=== PATIENT | female | born 1970 | race Caucasian/White ===

== ENCOUNTER 2021-10-24 19:37 | Emergency (ER) | payer OTHER, SELFPAY ==
--- NOTE | 2021-10-24 | ECG_ITS ---
Test Reason : TACHYCARDIA Blood Pressure : / mmHG Vent. Rate : 146 BPM Atrial Rate : 146 BPM P-R Int : 136 ms QRS Dur : 082 ms QT Int : 258 ms P-R-T Axes : 042 -36 033 degrees QTc Int : 402 ms Sinus tachycardia Left axis deviation Abnormal ECG When compared with ECG of 11-MAY-2018 15:44, No significant change was found Referred By: Generic ED Physician Electronically Signed By:HUE TORIBIO
--- NOTE | ~2021-10-24 | XR_ITS ---
EXAMINATION: XR CHEST CLINICAL INFORMATION: Cough. COMPARISON: Chest radiograph dated from 05/11/2018. TECHNIQUE: PA view of the chest was obtained. FINDINGS: Normal appearance of the cardiomediastinal silhouette. No focal airspace opacities, pleural effusions or pneumothorax. No acute osseous abnormalities. The visualized upper abdomen is within normal limits. XR/XR chest 1V IMPRESSION: No acute cardiopulmonary findings.
[2021-10-24 20:14] VITALS: BP 141/78; PULSE 156; RESP 20; TEMP 36.4; O2SAT 94; BMI 48.6
[2021-10-24 20:35] LABS: MANUAL DIFF FLAG NO
[2021-10-24 20:37] LABS: Basophils Percent Auto 0.3 % (0-2); Eosinophils Percent Auto 0.6 % (0-4); Hematocrit 42.7 % (37.0-47.0); Hemoglobin 14.4 g/dl (12.0-16.0); Imm Gran Abs Auto 0.02 X10*3/uL (0.00-0.03); Imm Gran Pct Auto 0.3 % (0.0-0.4); Lymphocytes Absolute Auto 0.7 X10*3/uL (1.2-4.9); Mean Corpuscular HGB Conc 33.7 g/dl (31.0-35.0); Mean Corpuscular Hemoglobin 31.2 pg (27.0-33.0); Mean Corpuscular Volume 92.6 fL (80.0-98.0); Mean Platelet Volume 9.4 fL (9.4-12.3); Monocytes Absolute Auto 0.6 X10*3/uL (0.1-1.2); Monocytes Percent Auto 8.4 % (2-11); Neutrophils Absolute Auto 5.5 x10*3/uL (2.0-8.3); Neutrophils Percent Auto 80.4 % (45-73); Platelet Count 165 X10*3/uL (160-400); Red Blood Count 4.61 X10*6/uL (4.20-5.50); Red Cell Distribution Width 12.6 % (11.0-16.0); White Blood Count 6.9 X10*3/uL (4.8-10.8)
[2021-10-24 20:50] LABS: COVID-19 Test Positive (Negative)
[2021-10-24 21:02] LABS: Anion Gap 13 (12-20); Blood Urea Nitrogen 11 mg/dL (9-16); Calcium 9.4 mg/dL (8.4-10.2); Carbon Dioxide 20 mmol/L (22-29); Chloride 106 mmol/L (96-108); Creatinine Clr Calc Pharmacy 105.1; Estimated Glomerular Filt Rate > 60; Glucose Random 134 mg/dL (60-115); Potassium 4.2 mmol/L (3.3-5.1); Sodium 135 mmol/L (135-145)
[2021-10-24 21:08] LABS: Troponin-I High Sensitivity < 3.5 ng/L (<3.5-17.0)
--- NOTE | 2021-10-24 22:05 | ED_ITS ---
HPI - General Adult General Chief complaint: General Medical Stated complaint: Covid+ fever body aches Time Seen by Provider: 10/24/21 22:05 Source: patient Mode of arrival: ambulatory History of Present Illness HPI narrative: Patient will been vaccinated against COVID has not received a booster dose yet tested positive for COVID today patient complaining of low-grade fever occasional cough otherwise feels okay no shortness of breath Related Data Allergies Allergy/AdvReac Type Severity Reaction Status Date / Time morphine [MORPHINE] Allergy Intermediate RASH Verified 10/24/21 20:13 Penicillins Allergy Mild RASH Verified 10/24/21 20:13 From BENADRYL Allergy Mild CONFUSION Uncoded 10/24/21 20:13 Review of Systems Review of Systems: Yes all other systems are reviewed and are negative [facility] Past Medical History Attestation statement: The following information was validated with the patient. Social History Social History Advance Directives: No Advance Directives Information Provided: No Physical Exam Vital Signs: Vital Signs: Last Vital Signs Temp 99.4 F 10/24/21 22:18 Pulse 160 H 10/24/21 22:18 Resp 20 10/24/21 22:18 BP 110/79 10/24/21 22:18 Pulse Ox 93 10/24/21 22:18 BMI result Body Mass Index 48.6 Appearance: Alert. Oriented X3. No acute distress. ENT: Pharynx normal. Oral Mucosa moist Neck: Normal inspection. Neck supple. CVS: sinus tachycardia Pulses normal. Respiratory: No respiratory distress. Equal air entry bilateral, no wheezing/rales/rhonchi Abdomen: Soft and nontender. Bowel sounds are present, Skin: Skin warm and dry. Normal skin color. Normal skin turgor. Extremities: No lower extremity edema. No calf tenderness Neuro: Oriented X 3. Medical Decision Making MDM Narrative Medical decision making narrative: Patient's chest x-ray negative for infiltrate was tachycardic when she arrived asymptomatic advised to follow with PCP for tachycardia Lab Data Result diagrams: 10/24/21 20:31 10/24/21 20:31 Labs: Lab Results 10/24/21 10/24/21 10/24/21 Range/Units 20:31 20:31 20:31 WBC 6.9 (4.8-10.8) X10*3/uL RBC 4.61 (4.20-5.50) X10*6/uL Hgb 14.4 (12.0-16.0) g/dl Hct 42.7 (37.0-47.0) % MCV 92.6 (80.0-98.0) fL MCH 31.2 (27.0-33.0) pg MCHC 33.7 (31.0-35.0) g/dl RDW 12.6 (11.0-16.0) % Plt Count 165 (160-400) X10*3/uL MPV 9.4 (9.4-12.3) fL Immature Gran % (Auto) 0.3 (0.0-0.4) % Neut % (Auto) 80.4 H (45-73) % Lymph % (Auto) 10.0 L (20-40) % Josephine % (Auto) 8.4 (2-11) % Eos % (Auto) 0.6 (0-4) % Baso % (Auto) 0.3 (0-2) % Lymph # (Auto) 0.7 L (1.2-4.9) X10*3/uL Josephine # (Auto) 0.6 (0.1-1.2) X10*3/uL Eos # (Auto) 0.0 (0.0-0.4) X10*3/uL Baso # (Auto) 0.0 (0.0-0.2) X10*3/uL Abs Immat Gran (auto) 0.02 (0.00-0.03) X10*3/uL Absolute Neuts (auto) 5.5 (2.0-8.3) x10*3/uL Absolute Nucleated RBC 0.000 (0.0-0.012) X10*3/uL Nucleated RBC % (auto) 0.0 (0.0-0.2) /100WBC Sodium 135 (135-145) mmol/L Potassium 4.2 (3.3-5.1) mmol/L Chloride 106 (96-108) mmol/L Carbon Dioxide 20 L (22-29) mmol/L Anion Gap 13 (12-20) BUN 11 (9-16) mg/dL Creatinine 0.84 (0.5-1.4) mg/dL Estim Creat Clear Calc 105.1 Estimated GFR > 60 Random Glucose 134 H (60-115) mg/dL Calcium 9.4 (8.4-10.2) mg/dL Troponin I High Sens < 3.5 (<3.5-17.0) ng/L COVID-19 (JEROMY) (Negative) COVID-19 Clin Com 10/24/21 Range/Units 20:31 WBC (4.8-10.8) X10*3/uL RBC (4.20-5.50) X10*6/uL Hgb (12.0-16.0) g/dl Hct (37.0-47.0) % MCV (80.0-98.0) fL MCH (27.0-33.0) pg MCHC (31.0-35.0) g/dl RDW (11.0-16.0) % Plt Count (160-400) X10*3/uL MPV (9.4-12.3) fL Immature Gran % (Auto) (0.0-0.4) % Neut % (Auto) (45-73) % Lymph % (Auto) (20-40) % Josephine % (Auto) (2-11) % Eos % (Auto) (0-4) % Baso % (Auto) (0-2) % Lymph # (Auto) (1.2-4.9) X10*3/uL [place]ine # (Auto) (0.1-1.2) X10*3/uL Eos # (Auto) (0.0-0.4) X10*3/uL Baso # (Auto) (0.0-0.2) X10*3/uL Abs Immat Gran (auto) (0.00-0.03) X10*3/uL Absolute Neuts (auto) (2.0-8.3) x10*3/uL Absolute Nucleated RBC (0.0-0.012) X10*3/uL Nucleated RBC % (auto) (0.0-0.2) /100WBC Sodium (135-145) mmol/L Potassium (3.3-5.1) mmol/L Chloride (96-108) mmol/L Carbon Dioxide (22-29) mmol/L Anion Gap (12-20) BUN (9-16) mg/dL Creatinine (0.5-1.4) mg/dL Estim Creat Clear Calc Estimated GFR Random Glucose (60-115) mg/dL Calcium (8.4-10.2) mg/dL Troponin I High Sens (<3.5-17.0) ng/L COVID-19 (JEROMY) Positive A (Negative) COVID-19 Clin Com See Note ECG Data Attestation: I personally reviewed and interpreted this ECG as follows: Interpretation: Sinus tachycardia with heart rate of 146 beats per minute normal intervals normal axis no acute ischemic changes Discharge Plan Discharge Clinical Impression: COVID-19 Patient Disposition: Home, Self-Care Instructions: COVID-19 (Coronavirus Disease 2019) (ED) Additional Instructions: Drink plenty of fluids Tylenol/Motrin for fever Report to the ER if increased shortness of breath
[2021-10-24 22:18] VITALS: BP 110/79; PULSE 160; RESP 20; TEMP 37.4; O2SAT 93
[2021-10-24] MEDS: Ibuprofen 800 MG TABLET PO (22:42)
--- NOTE | 2021-10-24 22:44 | PC.NURSE ---
Dr Mahoney shown pt's EKG, orders ibuprofen for pt to see if HR in 2/2 to pain/elevated body temp. pt medicated per DEC, on color television console monitor with ST 140s. Pt stretcher low locked, call ríos within reach.
[2021-10-24 23:49] VITALS: BP 118/56; PULSE 129; RESP 16; TEMP 37.4; O2SAT 96
--- NOTE | 2021-10-24 23:59 | PC.NURSE ---
Dr Mahoney made aware of pt's HR ST 120s and pt requesting DC. Dr Mahoney states pt OK for DC.
--- NOTE | 2021-10-25 00:09 | PC.NURSE ---
EKG performed by staff other than t/w. this rn documented EKG time from time listed on top of EKG which Dr Stanley originally reviewed, then showed to Dr Mahoney.
== END 2021-10-25 00:11 | disposition home or self-care (01) ==
PROVIDERS: Emergency Provider Internal Medicine
DX: U07.1 COVID-19 (principal); R50.9 Fever, unspecified; M79.10 Myalgia, unspecified site; Z79.899 Other long term (current) drug therapy
CPT/HCPCS: 36415; 71045; 80048; 84484; 85025; 87635; 93005; 99284

== ENCOUNTER 2023-03-18 17:28 | Emergency (ER) | payer OTHER, SELFPAY ==
--- NOTE | ~2023-03-18 | XR_ITS ---
EXAMINATION: XR CHEST CLINICAL INFORMATION: Shortness of breath COMPARISON: 03/18/2023 earlier and 10/24/2021 TECHNIQUE: Frontal view of the chest was obtained. FINDINGS: Limited from patient body habitus. Low lung volumes. Mild bilateral basilar atelectasis. No failure. Mildly prominent cardiac silhouette. The hilar regions are comparable XR/XR chest 1V IMPRESSION: Limited from low lung volumes. Mild bilateral basilar opacities may be atelectasis or areas of early infiltrate
[2023-03-18 17:43] VITALS: BP 162/86; PULSE 140; RESP 18; TEMP 36.8; O2SAT 97; BMI 55.9
--- NOTE | 2023-03-18 17:45 | ECG_ITS ---
Test Reason : pain Blood Pressure : / mmHG Vent. Rate : 130 BPM Atrial Rate : 130 BPM P-R Int : 132 ms QRS Dur : 080 ms QT Int : 314 ms P-R-T Axes : 031 -24 027 degrees QTc Int : 462 ms Sinus tachycardia Otherwise normal ECG When compared with ECG of 24-OCT-2021 20:20, No significant change was found Referred By: Pipo Sibley Electronically Signed By:Navdeep Alba
--- NOTE | 2023-03-18 17:46 | ED.GENADULT ---
HPI - General Adult General Chief complaint: Arrhythmia/Palpitations Stated complaint: Cough, astmae Time Seen by Provider: 03/18/23 18:08 Related Data Home Medications Medication Instructions Recorded Confirmed albuterol sulfate 2.5 mg/3 mL 2.5 mg inhalation Q4H PRN 03/18/23 03/18/23 (0.083 %) solution for nebulization Respiratory Distress albuterol sulfate 90 mcg/actuation 2 puff inhalation Q4H PRN 03/18/23 03/18/23 aerosol inhaler (Proventil HFA) Respiratory Distress cetirizine 10 mg tablet 10 mg PO DAILY PRN ALLERGIES 03/18/23 03/18/23 fluticasone 250 mcg-salmeterol 50 1 inh inhalation BID 03/18/23 03/18/23 mcg/dose blistr powdr for inhalation (Advair Diskus) fluticasone propionate 110 2 puff inhalation BID 03/18/23 03/18/23 mcg/actuation HFA aerosol inhaler (Flovent HFA) fluticasone propionate 50 2 spray intranasal DAILY 03/18/23 03/18/23 mcg/actuation nasal spray,suspension lisinopril 20 mg tablet 20 mg PO DAILY 03/18/23 03/18/23 lorazepam 1 mg tablet 1 mg PO BID PRN Anxiety 03/18/23 03/18/23 metformin 500 mg tablet,extended 500 mg PO DAILY 03/18/23 03/18/23 release 24 hr metoprolol succinate 50 mg 50 mg PO DAILY 03/18/23 03/18/23 tablet,extended release 24 hr naproxen 500 mg tablet 500 mg PO DAILY PRN Pain 03/18/23 03/18/23 risperidone 2 mg tablet 2 mg PO DAILY 03/18/23 03/18/23 Previous Rx's Medication Instructions Recorded prednisone 20 mg tablet 60 mg (3 x 20 mg) PO DAILY Asthma 03/18/23 5 days #15 tabs Allergies Allergy/AdvReac Type Severity Reaction Status Date / Time morphine [MORPHINE] Allergy Intermediate RASH Verified 03/18/23 17:43 Penicillins Allergy Mild RASH Verified 03/18/23 17:43 From BENADRYL Allergy Mild CONFUSION Uncoded 10/24/21 20:13 [facility] Social History Social History Alcohol intake: never Smoked in Last 30 Days: No Use of substances other than those prescribed or required for medical reasons: No Advance Directives: No Advance Directives Information Provided: No Patient : No Physical Exam ED Vital Signs: Vital Signs - 24 hr 03/18/23 17:43 Temperature 98.3 F Pulse Rate 140 H Respiratory Rate 18 Blood Pressure 162/86 H Pulse Oximetry 97 Oxygen Delivery Method Room Air BMI result Body Mass Index 55.9 Course Course Course Narrative: RME- 52-year-old female past medical history significant for asthma presents for evaluation of shortness of breath x1 week. Patient found have a heart rate of 140 in triage, regular rhythm. Lungs are clear to auscultation. Cardiac workup ordered Medications Administered Discontinued Medications Generic Name Dose Route Start Last Admin Trade Name Freq PRN Reason Stop Dose Admin Acetaminophen 650 mg 03/18/23 18:12 03/18/23 18:33 Acetaminophen 325 Mg Tablet PO 03/18/23 18:13 650 mg ONCE ONE Administration Sodium Chloride 1,000 mls @ 999 mls/hr 03/18/23 18:15 03/18/23 18:32 Ns IV 03/18/23 19:15 999 mls/hr .Q1H1M DYLAN Administration Prednisone 60 mg 03/18/23 18:12 03/18/23 18:33 Prednisone 20 Mg Tablet PO 03/18/23 18:13 60 mg ONCE ONE Administration Medical Decision Making Lab Data 03/18/23 17:59 03/18/23 17:59 Labs: Lab Results 03/18/23 03/18/23 Range/Units 17:59 19:06 WBC 7.5 (4.8-10.8) X10*3/uL RBC 4.38 (4.20-5.50) X10*6/uL Hgb 13.6 (12.0-16.0) g/dl Hct 40.8 (37.0-47.0) % MCV 93.2 (80.0-98.0) fL MCH 31.1 (27.0-33.0) pg MCHC 33.3 (31.0-35.0) g/dl RDW 13.0 (11.0-16.0) % Plt Count 170 (160-400) X10*3/uL MPV 9.9 (9.4-12.3) fL Immature Gran % (Auto) 1.2 H (0.0-0.4) % Neut % (Auto) 58.4 (45-73) % Lymph % (Auto) 31.7 (20-40) % [place] % (Auto) 7.5 (2-11) % Eos % (Auto) 0.8 (0-4) % Baso % (Auto) 0.4 (0-2) % Lymph # (Auto) 2.4 (1.2-4.9) X10*3/uL [place] # (Auto) 0.6 (0.1-1.2) X10*3/uL Eos # (Auto) 0.1 (0.0-0.4) X10*3/uL Baso # (Auto) 0.0 (0.0-0.2) X10*3/uL Abs Immat Gran (auto) 0.09 H (0.00-0.03) X10*3/uL Absolute Neuts (auto) 4.4 (2.0-8.3) x10*3/uL Absolute Nucleated RBC 0.000 (0.0-0.012) X10*3/uL Nucleated RBC % (auto) 0.0 (0.0-0.2) /100WBC PT 12.3 (10.0-13.1) SEC INR 1.1 (0.9-1.1) APTT 31.4 (26.0-36.4) SEC D-Dimer High Sensitivty 215 NG/ML Sodium 140 (135-145) mmol/L Potassium 4.2 (3.3-5.1) mmol/L Chloride 106 (96-108) mmol/L Carbon Dioxide 26 (22-29) mmol/L Anion Gap 12 (12-20) BUN 7 L (9-16) mg/dL Creatinine 1.31 (0.5-1.4) mg/dL Estim Creat Clear Calc 71.9 Estimated GFR 43 Random Glucose 146 H (60-115) mg/dL Lactic Acid 1.6 (0.5-2.0) mmol/L Calcium 9.4 (8.4-10.2) mg/dL Troponin I High Sens < 2.7 (<3.5-17.0) ng/L B-Natriuretic Peptide < 10 (<100) pg/mL Ethyl Alcohol < 10 mg/dL COVID-19 (JEROMY) Negative (Negative) COVID-19 Clin Com See Note Discharge Plan Discharge Clinical Impression: Palpitations Patient Disposition: Home, Self-Care Instructions: Heart Palpitations (DC) Additional Instructions: You were seen today for heart palpitations after over using your albuterol and Robitussin. Your heart rate improved with some fluids you had an x-ray and labs which were all normal. Please be careful with her albuterol in the future if you no longer wheezing be still for sure feel short of breath please come to the emergency department. If you have any other concerns please do not hesitate to come back to the emergency department. Prescriptions: New prednisone 20 mg tablet 60 mg PO DAILY 5 Days Qty: 15 0RF No Action risperidone 2 mg Tablet 2 mg PO DAILY lorazepam 1 mg Tablet 1 mg PO BID PRN (Reason: Anxiety) naproxen 500 mg Tablet 500 mg PO DAILY PRN (Reason: Pain) albuterol sulfate 2.5 mg /3 mL (0.083 %) Solution For Nebulization 2.5 mg INHALATION Q4H PRN (Reason: Respiratory Distress) fluticasone propion-salmeterol [Advair Diskus] 250-50 mcg/dose Blister With Device 1 inh INHALATION BID lisinopril 20 mg Tablet 20 mg PO DAILY metoprolol succinate 50 mg Tablet Extended Release 24 Hr 50 mg PO DAILY fluticasone propionate [Flonase] 50 mcg/actuation [place],Suspension 2 spray INTRANASAL DAILY Rx Instructions: administer into each nostril fluticasone propionate [Flovent HFA] 110 mcg/actuation Hfa Aerosol Inhaler 2 puff INHALATION BID cetirizine 10 mg Tablet 10 mg PO DAILY PRN (Reason: ALLERGIES) metformin 500 mg Tablet Extended Release 24 Hr 500 mg PO DAILY albuterol sulfate [Proventil HFA] 90 mcg/actuation Hfa Aerosol Inhaler 2 puff INHALATION Q4H PRN (Reason: Respiratory Distress) Interventions: ED Discharge Assessment Last Done: 03/18/23 21:08 Discharge Date/Time: 03/18/23 21:14
[2023-03-18 18:04] LABS: MANUAL DIFF FLAG NO
--- NOTE | 2023-03-18 18:13 | ED_ITS ---
HPI - Arrhythmia/Palpitations General Chief Complaint: Arrhythmia/Palpitations Stated Complaint: Cough, astmae Time Seen by Provider: 03/18/23 18:08 Source: patient Mode of arrival: ambulatory Limitations: no limitations History of Present Illness HPI narrative: 52-year-old female presents to the emergency department with palpitations. Patient initially was having shortness of breath and cough. She has been cou ghing cough coughing as she started to use her inhaler her machine for breathing and also has been taking Robitussin. She denies any fevers chills she states she has a history of asthma. MD complaint: rapid heart beat Related Data Home Medications Medication Instructions Recorded Confirmed albuterol sulfate 2.5 mg/3 mL 2.5 mg inhalation Q4H PRN 03/18/23 03/18/23 (0.083 %) solution for nebulization Respiratory Distress albuterol sulfate 90 mcg/actuation 2 puff inhalation Q4H PRN 03/18/23 03/18/23 aerosol inhaler (Proventil HFA) Respiratory Distress cetirizine 10 mg tablet 10 mg PO DAILY PRN ALLERGIES 03/18/23 03/18/23 fluticasone 250 mcg-salmeterol 50 1 inh inhalation BID 03/18/23 03/18/23 mcg/dose blistr powdr for inhalation (Advair Diskus) fluticasone propionate 110 2 puff inhalation BID 03/18/23 03/18/23 mcg/actuation HFA aerosol inhaler (Flovent HFA) fluticasone propionate 50 2 spray intranasal DAILY 03/18/23 03/18/23 mcg/actuation nasal spray,suspension lisinopril 20 mg tablet 20 mg PO DAILY 03/18/23 03/18/23 lorazepam 1 mg tablet 1 mg PO BID PRN Anxiety 03/18/23 03/18/23 metformin 500 mg tablet,extended 500 mg PO DAILY 03/18/23 03/18/23 release 24 hr metoprolol succinate 50 mg 50 mg PO DAILY 03/18/23 03/18/23 tablet,extended release 24 hr naproxen 500 mg tablet 500 mg PO DAILY PRN Pain 03/18/23 03/18/23 risperidone 2 mg tablet 2 mg PO DAILY 03/18/23 03/18/23 Previous Rx's Medication Instructions Recorded prednisone 20 mg tablet 60 mg PO DAILY Asthma 5 days #15 03/18/23 tabs Allergies Allergy/AdvReac Type Severity Reaction Status Date / Time morphine [MORPHINE] Allergy Intermediate RASH Verified 03/18/23 17:43 Penicillins Allergy Mild RASH Verified 03/18/23 17:43 From BENADRYL Allergy Mild CONFUSION Uncoded 10/24/21 20:13 Review of Systems Review of Systems: Review of systems: General: Patient denies any fever chills recent illness or falls Musculoskeletal: Denies back pain or body aches or other injuries HEENT: denies headache, runny nose, ear pain Respiratory: shortness of breath, cough Cardiovascular: Palpitations no chest pain : denies dysuria, frequency Abdomen: no nausea vomiting denies abdominal pain Extremities: no swelling, no pain Skin: no diaphoresis Yes all other systems are reviewed and are negative PMFSH Social History Social History Advance Directives: No Advance Directives Information Provided: No Physical Exam Vital Signs: Vital Signs: Last Vital Signs Temp 98.3 F 03/18/23 17:43 Pulse 140 H 03/18/23 17:43 Resp 18 03/18/23 17:43 BP 162/86 H 03/18/23 17:43 Pulse Ox 97 03/18/23 17:43 O2 Del Method Room Air 03/18/23 17:43 BMI result Body Mass Index 55.9 General: Well-appearing well-nourished in no signs of distress HEENT: Normocephalic atraumatic Neck: No signs of JVD, no masses no tenderness or lymphadenopathy Cardiovascular: Tachycardic Respiratory: Clear to auscultation bilaterally Abdomen: Soft nontender no masses Extremities: Normal pedal pulses no signs of edema Skin: Dry warm no rashes Back: No tenderness full ROM Course Reevaluation(s) Reevaluation #1: 2027 HR now improved XR and labs okay I educated her on proper use of albuterol I will send home. Medications Administered Discontinued Medications Generic Name Dose Route Start Last Admin Trade Name Trevor PRN Reason Stop Dose Admin Acetaminophen 650 mg 03/18/23 18:12 03/18/23 18:33 Acetaminophen 325 Mg Tablet PO 03/18/23 18:13 650 mg ONCE ONE Administration Sodium Chloride 1,000 mls @ 999 mls/hr 03/18/23 18:15 03/18/23 18:32 Ns IV 03/18/23 19:15 999 mls/hr .Q1H1M DYLAN Administration Prednisone 60 mg 03/18/23 18:12 03/18/23 18:33 Prednisone 20 Mg Tablet PO 03/18/23 18:13 60 mg ONCE ONE Administration Medical Decision Making Medical Decision Making [facility] Narrative: I went saw the patient immediately as patient heard in the 140s patient remains to be tachycardic in the 130s to 140s was in the room she does admit to overuse of her inhaler I think this is likely beta 1 adrenergic effect I will give patient some fluids and give some prednisone her lungs are actually pretty clear at this time I do not think she needs any more breathing treatments. Differential Diagnosis Differential Diagnoses: The differential diagnosis associated with the presentation includes COPD exacerbation the use of albuterol Admission/Observation Consideration of admission/observation: Escalation of care including admission/observation considered Consult Healthcare Provider Management of the patient was discussed with: Hospitalist Lab Data [facility] Lab Attestation statement: I reviewed the patient's lab results. 03/18/23 17:59 03/18/23 17:59 Labs: Lab Results 03/18/23 03/18/23 03/18/23 Range/Units 17:59 17:59 17:59 WBC 7.5 (4.8-10.8) X10*3/uL RBC 4.38 (4.20-5.50) X10*6/uL Hgb 13.6 (12.0-16.0) g/dl Hct 40.8 (37.0-47.0) % MCV 93.2 (80.0-98.0) fL MCH 31.1 (27.0-33.0) pg MCHC 33.3 (31.0-35.0) g/dl RDW 13.0 (11.0-16.0) % Plt Count 170 (160-400) X10*3/uL MPV 9.9 (9.4-12.3) fL Immature Gran % (Auto) 1.2 H (0.0-0.4) % Neut % (Auto) 58.4 (45-73) % Lymph % (Auto) 31.7 (20-40) % [place] % (Auto) 7.5 (2-11) % Eos % (Auto) 0.8 (0-4) % Baso % (Auto) 0.4 (0-2) % Lymph # (Auto) 2.4 (1.2-4.9) X10*3/uL [place] # (Auto) 0.6 (0.1-1.2) X10*3/uL Eos # (Auto) 0.1 (0.0-0.4) X10*3/uL Baso # (Auto) 0.0 (0.0-0.2) X10*3/uL Abs Immat Gran (auto) 0.09 H (0.00-0.03) X10*3/uL Absolute Neuts (auto) 4.4 (2.0-8.3) x10*3/uL Absolute Nucleated RBC 0.000 (0.0-0.012) X10*3/uL Nucleated RBC % (auto) 0.0 (0.0-0.2) /100WBC PT 12.3 (10.0-13.1) SEC INR 1.1 (0.9-1.1) APTT 31.4 (26.0-36.4) SEC D-Dimer High Sensitivty 215 NG/ML Sodium 140 (135-145) mmol/L Potassium 4.2 (3.3-5.1) mmol/L Chloride 106 (96-108) mmol/L Carbon Dioxide 26 (22-29) mmol/L Anion Gap 12 (12-20) BUN 7 L (9-16) mg/dL Creatinine 1.31 (0.5-1.4) mg/dL Estim Creat Clear Calc 71.9 Estimated GFR 43 Random Glucose 146 H (60-115) mg/dL Lactic Acid (0.5-2.0) mmol/L Calcium 9.4 (8.4-10.2) mg/dL Troponin I High Sens (<3.5-17.0) ng/L B-Natriuretic Peptide (<100) pg/mL Ethyl Alcohol < 10 mg/dL COVID-19 ([facility]EROMY) (Negative) COVID-19 Clin Com 03/18/23 03/18/23 03/18/23 Range/Units 17:59 17:59 19:06 WBC (4.8-10.8) X10*3/uL RBC (4.20-5.50) X10*6/uL Hgb (12.0-16.0) g/dl Hct (37.0-47.0) % MCV (80.0-98.0) fL MCH (27.0-33.0) pg MCHC (31.0-35.0) g/dl RDW (11.0-16.0) % Plt Count (160-400) X10*3/uL MPV (9.4-12.3) fL Immature Gran % (Auto) (0.0-0.4) % Neut % (Auto) (45-73) % Lymph % (Auto) (20-40) % [place] % (Auto) (2-11) % Eos % (Auto) (0-4) % Baso % (Auto) (0-2) % Lymph # (Auto) (1.2-4.9) X10*3/uL [place] # (Auto) (0.1-1.2) X10*3/uL Eos # (Auto) (0.0-0.4) X10*3/uL Baso # (Auto) (0.0-0.2) X10*3/uL Abs Immat Gran (auto) (0.00-0.03) X10*3/uL Absolute Neuts (auto) (2.0-8.3) x10*3/uL Absolute Nucleated RBC (0.0-0.012) X10*3/uL Nucleated RBC % (auto) (0.0-0.2) /100WBC PT (10.0-13.1) SEC INR (0.9-1.1) APTT (26.0-36.4) SEC D-Dimer High Sensitivty NG/ML Sodium (135-145) mmol/L Potassium (3.3-5.1) mmol/L Chloride (96-108) mmol/L Carbon Dioxide (22-29) mmol/L Anion Gap (12-20) BUN (9-16) mg/dL Creatinine (0.5-1.4) mg/dL Estim Creat Clear Calc Estimated GFR Random Glucose (60-115) mg/dL Lactic Acid (0.5-2.0) mmol/L Calcium (8.4-10.2) mg/dL Troponin I High Sens < 2.7 (<3.5-17.0) ng/L B-Natriuretic Peptide < 10 (<100) pg/mL Ethyl Alcohol mg/dL COVID-19 (JEROMY) Negative (Negative) COVID-19 Clin Com See Note 03/18/23 Range/Units 19:06 WBC (4.8-10.8) X10*3/uL RBC (4.20-5.50) X10*6/uL Hgb (12.0-16.0) g/dl Hct (37.0-47.0) % MCV (80.0-98.0) fL MCH (27.0-33.0) pg MCHC (31.0-35.0) g/dl RDW (11.0-16.0) % Plt Count (160-400) X10*3/uL MPV (9.4-12.3) fL Immature Gran % (Auto) (0.0-0.4) % Neut % (Auto) (45-73) % Lymph % (Auto) (20-40) % [place] % (Auto) (2-11) % Eos % (Auto) (0-4) % Baso % (Auto) (0-2) % Lymph # (Auto) (1.2-4.9) X10*3/uL [place] # (Auto) (0.1-1.2) X10*3/uL Eos # (Auto) (0.0-0.4) X10*3/uL Baso # (Auto) (0.0-0.2) X10*3/uL Abs Immat Gran (auto) (0.00-0.03) X10*3/uL Absolute Neuts (auto) (2.0-8.3) x10*3/uL Absolute Nucleated RBC (0.0-0.012) X10*3/uL Nucleated RBC % (auto) (0.0-0.2) /100WBC PT (10.0-13.1) SEC INR (0.9-1.1) APTT (26.0-36.4) SEC D-Dimer High Sensitivty NG/ML Sodium (135-145) mmol/L Potassium (3.3-5.1) mmol/L Chloride (96-108) mmol/L Carbon Dioxide (22-29) mmol/L Anion Gap (12-20) BUN (9-16) mg/dL Creatinine (0.5-1.4) mg/dL Estim Creat Clear Calc Estimated GFR Random Glucose (60-115) mg/dL Lactic Acid 1.6 (0.5-2.0) mmol/L Calcium (8.4-10.2) mg/dL Troponin I High Sens (<3.5-17.0) ng/L B-Natriuretic Peptide (<100) pg/mL Ethyl Alcohol mg/dL COVID-19 ([facility]) (Negative) COVID-19 Clin Com Independent Interpretation I performed an independent interpretation of an: EKG and Plain X-Ray Radiology Impression Discussion of test interpretation with radiology: I discussed test interpretation with the radiologist and I have reviewed the radiologist's reading. External Record Review External record reviewed: Inpatient record Critical Care Time Critical Care Time Total Critical Care Time: 35 Attestation: 52-year-old female with overuse of her inhaler leading to tachycardia patient also took to med Robitussin had [place] time with the patient educating proper use of these medications as well as Effexor heart rate. Patient did improve with fluids and was safe to be discharged home. Discharge Plan Discharge Clinical Impression: Palpitations Patient Disposition: Home, Self-Care Instructions: Heart Palpitations (DC) Additional Instructions: You were seen today for heart palpitations after over using your albuterol and Robitussin. Your heart rate improved with some fluids you had an x-ray and labs which were all normal. Please be careful with her albuterol in the future if you no longer wheezing be still for sure feel short of breath please come to the emergency department. If you have any other concerns please do not hesitate to come back to the emergency department. Prescriptions: New prednisone 20 mg tablet 60 mg PO DAILY 5 Days Qty: 15 0RF No Action risperidone 2 mg Tablet 2 mg PO DAILY lorazepam 1 mg Tablet 1 mg PO BID PRN (Reason: Anxiety) naproxen 500 mg Tablet 500 mg PO DAILY PRN (Reason: Pain) albuterol sulfate 2.5 mg /3 mL (0.083 %) Solution For Nebulization 2.5 mg INHALATION Q4H PRN (Reason: Respiratory Distress) fluticasone propion-salmeterol [Advair Diskus] 250-50 mcg/dose Blister With Device 1 inh INHALATION BID lisinopril 20 mg Tablet 20 mg PO DAILY metoprolol succinate 50 mg Tablet Extended Release 24 Hr 50 mg PO DAILY fluticasone propionate [Flonase] 50 mcg/actuation [place],Suspension 2 spray INTRANASAL DAILY Rx Instructions: administer into each nostril fluticasone propionate [Flovent HFA] 110 mcg/actuation Hfa Aerosol Inhaler 2 puff INHALATION BID cetirizine 10 mg Tablet 10 mg PO DAILY PRN (Reason: ALLERGIES) metformin 500 mg Tablet Extended Release 24 Hr 500 mg PO DAILY albuterol sulfate [Proventil HFA] 90 mcg/actuation Hfa Aerosol Inhaler 2 puff INHALATION Q4H PRN (Reason: Respiratory Distress)
[2023-03-18 18:18] LABS: INTERNATIONAL NORM RATIO 1.1 (0.9-1.1); Prothrombin Time 12.3 SEC (10.0-13.1)
[2023-03-18 18:20] LABS: Partial Thromboplastin Time 31.4 SEC (26.0-36.4)
[2023-03-18 18:25] LABS: Anion Gap 12 (12-20); Basophils Percent Auto 0.4 % (0-2); Blood Urea Nitrogen 7 mg/dL (9-16); Calcium 9.4 mg/dL (8.4-10.2); Carbon Dioxide 26 mmol/L (22-29); Chloride 106 mmol/L (96-108); Creatinine Clr Calc Pharmacy 71.9; Eosinophils Absolute Auto 0.1 X10*3/uL (0.0-0.4); Eosinophils Percent Auto 0.8 % (0-4); Estimated Glomerular Filt Rate 43; Glucose Random 146 mg/dL (60-115); Hematocrit 40.8 % (37.0-47.0); Hemoglobin 13.6 g/dl (12.0-16.0); Imm Gran Abs Auto 0.09 X10*3/uL (0.00-0.03); Imm Gran Pct Auto 1.2 % (0.0-0.4); Lymphocytes Absolute Auto 2.4 X10*3/uL (1.2-4.9); Lymphocytes Percent Auto 31.7 % (20-40); Mean Corpuscular HGB Conc 33.3 g/dl (31.0-35.0); Mean Corpuscular Hemoglobin 31.1 pg (27.0-33.0); Mean Corpuscular Volume 93.2 fL (80.0-98.0); Mean Platelet Volume 9.9 fL (9.4-12.3); Monocytes Absolute Auto 0.6 X10*3/uL (0.1-1.2); Monocytes Percent Auto 7.5 % (2-11); Neutrophils Absolute Auto 4.4 x10*3/uL (2.0-8.3); Neutrophils Percent Auto 58.4 % (45-73); Platelet Count 170 X10*3/uL (160-400); Potassium 4.2 mmol/L (3.3-5.1); Red Blood Count 4.38 X10*6/uL (4.20-5.50); Sodium 140 mmol/L (135-145); White Blood Count 7.5 X10*3/uL (4.8-10.8)
[2023-03-18] MEDS: 0.9 % Sodium Chloride 1,000 ML 999 ML IV (18:32)
[2023-03-18 18:33] LABS: B Type Natriuretic Peptide < 10 pg/mL (<100)
[2023-03-18] MEDS: Acetaminophen 325 MG TABLET 650 MG PO (18:33)
[2023-03-18] MEDS: predniSONE 20 MG TABLET 60 MG PO (18:33)
[2023-03-18 18:37] LABS: Troponin-I High Sensitivity < 2.7 ng/L (<3.5-17.0)
--- NOTE | 2023-03-18 18:37 | PC.NURSE ---
pt has clear bronchial and vesicular ls in all boateng. pt is speaking in full clear sentences and is in no distress. failed iv in l ac and rla est 20 ga iv in lac. pt in nsr in lead 2 awaiting lab and rad results.
[2023-03-18 19:06] LABS: D Dimer High Sensitivity 215 NG/ML
--- NOTE | 2023-03-18 19:08 | PHA.MEDREC ---
MED REC COMPLETED Pharmacy Consult ? Medication Reconciliation Pharmacy has completed the medication reconciliation.
[2023-03-18 19:21] LABS: Ethanol < 10 mg/dL
[2023-03-18 19:32] LABS: COVID-19 Test Negative (Negative); Lactic Acid 1.6 mmol/L (0.5-2.0)
[2023-03-18 20:51] VITALS: BP 129/70; PULSE 102; RESP 14; TEMP 37.1; O2SAT 94
--- NOTE | 2023-03-18 21:01 | PC.NURSE ---
Patient received in bed with eyes open patient showing no distress at this time patient is AAOX4 patient complain of having a cough patient has a history of asthma patient has a history of HTN patient stated she has not taken her medications today patient will continue to be monitored for safety
[2023-03-18 21:03] VITALS: BP 126/76; PULSE 103; RESP 30; TEMP 36.9
--- NOTE | 2023-03-18 21:05 | PC.NURSE ---
Patient encouraged to change position and take some breathing exercises patient saturation went up from 94 to 96 patient was educated on proper posture to keep the oxygen and air flow adequate safety will be maintained
--- NOTE | 2023-03-18 21:07 | PC.NURSE ---
Patient in the process of being discharged patient is fully aware patient will be released after paperwork saline lock will be discarded
== END 2023-03-18 21:14 | disposition home or self-care (01) ==
PROVIDERS: Physician Assistant; Emergency Provider Student in an Organized Health Care Education/Training Program
DX: R00.2 Palpitations (principal); R06.02 Shortness of breath; Z20.822 Contact with and (suspected) exposure to COVID-19; Z79.899 Other long term (current) drug therapy
CPT/HCPCS: 36415; 71045; 80048; 80307; 83605; 83880; 84484; 85025; 85379; 85610; 85730; 87040; 87635; 93005; 99283; 99285

== ENCOUNTER 2023-12-01 05:56 | Emergency (ER) | payer OTHER, SELFPAY ==
--- NOTE | ~2023-12-01 | CT_ITS ---
EXAMINATION: CT ABDOMEN AND PELVIS WITHOUT CONTRAST CLINICAL INFORMATION: Lower abdominal tenderness palpation COMPARISON: CT abdomen from 03/08/2028 TECHNIQUE: Multidetector volumetric imaging was performed from the superior aspect of the liver through the pubic symphysis. Sagittal and coronal reformatted images were obtained on the technologist's workstation. This CT examination was performed using dose optimization techniques as appropriate, variously including the following: *Automated exposure control *Adjustment of mA and/or kV according to patient size (this includes techniques or standardized protocols for targeted exams where dose is matched to indication/reason for exam; i.e. extremities or head) *Use of iterative reconstruction technique DLP: 1245 mGy-cm FINDINGS: LUNG BASES: Bibasilar atelectasis. No pneumothorax. No large pleural effusion. LIVER, GALLBLADDER, AND BILIARY TREE: The liver is mildly enlarged. No focal hepatic lesion or biliary ductal dilatation is present. The gallbladder is surgically absent. PANCREAS: Unremarkable. SPLEEN: Spleen is enlarged measuring 15.1 cm. ADRENAL GLANDS: Unremarkable. KIDNEYS AND URETERS: The kidneys are normal in size, shape, and attenuation. No hydronephrosis, hydroureter, or calculi seen. No perinephric stranding. BLADDER: Unremarkable. GASTROINTESTINAL TRACT: The small and large bowel are unremarkable. The appendix is unremarkable. ABDOMINAL WALL: No significant hernia is appreciated. LYMPH NODES/MESENTERY: Multiple subcentimeter mesenteric lymph nodes are noted with slight haziness in the mesentery suggesting elements of mesenteric adenitis versus panniculitis. Correlation with symptomatology. No enlarged lymph nodes per size criteria. VASCULAR: Abdominal aorta is not aneurysmal. Duplicated IVC. PELVIC VISCERA: Anteverted enlarged leiomyomatous uterus with partially calcified fibroid along the right posterior uterine fundus measuring 1.7 cm. Bilateral adnexal/ovarian hypodense foci the largest on the right measuring 1.8 cm. Assuming postmenopausal status findings are overwhelmingly likely to represent a benign functional cyst and no follow-up imaging recommended. OSSEOUS STRUCTURES: Multilevel degenerative changes of the thoracolumbar and lumbosacral spine. CT/CT abdomen pelvis wo IV con IMPRESSION: 1. Multiple subcentimeter mesenteric lymph nodes are noted with slight haziness in the mesentery suggesting elements of mesenteric adenitis versus panniculitis. Correlation with symptomatology. No enlarged lymph nodes per size criteria. 2. Mild hepatosplenomegaly. 3. Anteverted enlarged leiomyomatous uterus with partially calcified fibroid along the right posterior uterine fundus measuring 1.7 cm. 4. Bilateral adnexal/ovarian hypodense foci the largest on the right measuring 1.8 cm. Assuming postmenopausal status findings are overwhelmingly likely to represent a benign functional cyst and no follow-up imaging recommended. 5. Duplicated IVC.
--- NOTE | ~2023-12-01 | US_ITS ---
EXAMINATION: US ABDOMEN LIMITED CLINICAL INFORMATION: Right upper quadrant pain. Elevated liver enzymes. Hepatomegaly.. COMPARISON: CT scan of January 30, 2024 and study of March 08, 2008 TECHNIQUE: Real-time imaging of the right upper quadrant abdominal viscera. FINDINGS: PANCREAS: Normal. No abnormal mass or peripancreatic inflammatory change. LIVER: No definite hepatomegaly identified with vertical span of 16 cm. The liver contour is normal. Parenchymal echogenicity is normal. No focal hepatic lesion. There is no intrahepatic biliary duct dilatation seen. GALLBLADDER: Status post cholecystectomy. COMMON BILE DUCT: Normal in caliber measuring 0.7 cm in diameter. RIGHT KIDNEY: Normal. No hydronephrosis. No renal calculi or focal parenchymal lesions. The kidney measures 12.0 cm in maximum dimension. FREE FLUID: None. US/US abdomen limited IMPRESSION: No evidence of hepatomegaly on ultrasound. No significant evidence of fatty infiltration of the liver or hepatocellular disease.
[2023-12-01 06:12] VITALS: BP 118/80; PULSE 121; RESP 16; TEMP 37; O2SAT 95; BMI 53.0
[2023-12-01 08:03] VITALS: BP 118/72; PULSE 115; RESP 18; O2SAT 96
[2023-12-01 08:17] LABS: MANUAL DIFF FLAG NO
--- NOTE | 2023-12-01 08:17 | PC.NURSE ---
Pt is alert and oriented, reports diffuse abd pain with vomiting and diarrhea x 3 days. Pt also reports constipation with formed stool x3 days ago. Denies urinary sx. +Bowel sounds x 4 quads. States pain is 8/10. No grimace or guarding noted. Skin pwd. Speaking full sentences. Breathing even and unlabored. IV established 20g to left ac and labs/viral swabs obtained/sent. Awaiting ED provider.
[2023-12-01 08:21] LABS: Basophils Percent Auto 0.3 % (0-2); Eosinophils Percent Auto 0.7 % (0-4); Hemoglobin 13.7 g/dl (12.0-16.0); Imm Gran Abs Auto 0.02 X10*3/uL (0.00-0.03); Imm Gran Pct Auto 0.3 % (0.0-0.4); Lymphocytes Percent Auto 17.3 % (20-40); Mean Corpuscular HGB Conc 33.4 g/dl (31.0-35.0); Mean Corpuscular Hemoglobin 30.1 pg (27.0-33.0); Mean Corpuscular Volume 90.1 fL (80.0-98.0); Mean Platelet Volume 9.8 fL (9.4-12.3); Monocytes Absolute Auto 0.4 X10*3/uL (0.1-1.2); Monocytes Percent Auto 7.3 % (2-11); Neutrophils Absolute Auto 4.4 x10*3/uL (2.0-8.3); Neutrophils Percent Auto 74.1 % (45-73); Platelet Count 133 X10*3/uL (160-400); Red Blood Count 4.55 X10*6/uL (4.20-5.50); Red Cell Distribution Width 14.1 % (11.0-16.0); White Blood Count 5.9 X10*3/uL (4.8-10.8)
--- NOTE | 2023-12-01 08:21 | ED.ABDPAIN ---
HPI - Abdominal Pain General Chief Complaint: Abdominal Pain Stated Complaint: stomach pain, dizziness Time Seen by Provider: 12/01/23 08:10 Source: patient Mode of arrival: ambulatory Limitations: no limitations History of Present Illness HPI narrative: 52 year old female with pmhx significant for diabetes and asthma presents to the ED this morning from home for evaluation of abdominal pain, nausea/vomiting, and diarrhea x3 days. Abdominal pain localized to epigastric region. Reports last BM this morning was loose stool. Denies bright red blood per rectum, hematochezia, melena. Endorses multiple episodes of non-bloody vomiting, last vomited last night. Has not been taking any OTC medications for this at home. Denies eating new or foods. Denies recent travel. Denies known sick contacts. Denies fever, chills, sore throat, cough, hematemesis. Related Data Home Medications Medication Instructions Recorded Confirmed albuterol sulfate 2.5 mg/3 mL 2.5 mg inhalation Q4H PRN 03/18/23 03/18/23 (0.083 %) solution for nebulization Respiratory Distress albuterol sulfate 90 mcg/actuation 2 puff inhalation Q4H PRN 03/18/23 03/18/23 aerosol inhaler (Proventil HFA) Respiratory Distress cetirizine 10 mg tablet 10 mg PO DAILY PRN ALLERGIES 03/18/23 03/18/23 fluticasone 250 mcg-salmeterol 50 1 inh inhalation BID 03/18/23 03/18/23 mcg/dose blistr powdr for inhalation (Advair Diskus) fluticasone propionate 110 2 puff inhalation BID 03/18/23 03/18/23 mcg/actuation HFA aerosol inhaler (Flovent HFA) fluticasone propionate 50 2 spray intranasal DAILY 03/18/23 03/18/23 mcg/actuation nasal spray,suspension lisinopril 20 mg tablet 20 mg PO DAILY 03/18/23 03/18/23 lorazepam 1 mg tablet 1 mg PO BID PRN Anxiety 03/18/23 03/18/23 metformin 500 mg tablet,extended 500 mg PO DAILY 03/18/23 03/18/23 release 24 hr metoprolol succinate 50 mg 50 mg PO DAILY 03/18/23 03/18/23 tablet,extended release 24 hr naproxen 500 mg tablet 500 mg PO DAILY PRN Pain 03/18/23 03/18/23 risperidone 2 mg tablet 2 mg PO DAILY 03/18/23 03/18/23 Previous Rx's Medication Instructions Recorded prednisone 20 mg tablet 60 mg (3 x 20 mg) PO DAILY Asthma 03/18/23 5 days #15 tabs nitrofurantoin macrocrystal 100 mg 100 mg PO BID 5 days #10 caps 12/01/23 capsule ondansetron 4 mg disintegrating 4 mg PO DAILY PRN nausea and 12/01/23 tablet vomiting 5 days #14 tabs Allergies Allergy/AdvReac Type Severity Reaction Status Date / Time morphine [MORPHINE] Allergy Intermediate RASH Verified 03/18/23 17:43 Penicillins Allergy Mild RASH Verified 03/18/23 17:43 From BENADRYL Allergy Mild CONFUSION Uncoded 10/24/21 20:13 Review of Systems Review of Systems Constitutional: No fever, chills, fatigue, night sweats, weight changes ENT/Mouth: No ear pain, hearing loss, nasal congestion, sinus pain, rhinorrhea, sore throat Eyes: No eye pain, swelling, redness, vision changes, discharge Cardio: No chest pain, palpitations, RAMIREZ, orthopnea, peripheral edema Pulm: No SOB, cough, sputum, wheezing, dyspnea, hemoptysis GI: No hematemesis, diarrhea, constipation, hematochezia, melena, +N/V, +diarrhea, +abd pain : No irregular bleeding, dysuria, frequency, urgency, hesitancy, hematuria, flank pain, urinary flow changes, urinary incontinence or retention MSK: No back pain, neck pain, joint pain, myalgias Skin: No lesions, rashes Neuro: No weakness, numbness, paresthesias, LOC, dizziness, headache Psych: No anxiety/panic, depression, SI/HI, AH/VH All other systems reviewed and are negative. [facility] Past Medical History Attestation statement: The following information was validated with the patient. Source: old records reviewed and nursing notes reviewed Social History Social History Alcohol intake: never Smoked in Last 30 Days: No Use of substances other than those prescribed or required for medical reasons: No Advance Directives: No Physical Exam ED Vital Signs: Vital Signs - 24 hr 12/01/23 06:12 12/01/23 08:03 12/01/23 09:57 Temperature 98.6 F 100.1 F Pulse Rate 121 H 115 H Respiratory Rate 16 18 Blood Pressure 118/80 118/72 Pulse Oximetry 95 96 Oxygen Delivery Method Room Air Room Air 12/01/23 10:00 12/01/23 10:20 12/01/23 12:51 Temperature 99.4 F Pulse Rate 103 H 96 Respiratory Rate 16 16 Blood Pressure 103/61 108/51 L Pulse Oximetry 95 95 Oxygen Delivery Method Room Air Room Air Room Air BMI result Body Mass Index 53.0 Patient initially tachycardic, vitals now wnl. Const General: cooperative, healthy appearing, comfortable, no acute distress, alert and awake Orientation/consciousness: patient oriented x3 Limitations: no limitations HENMT Head: Yes normal to inspection Eyes General: appearance normal, both eyes and all related structures Conjunctivae: conjunctivae normal Sclerae: sclerae normal Pupils: Equal, round and reactive pupils present Neck Neck: Yes normal visual inspection and Yes no lymphadenopathy Resp Effort & Inspection: normal respiratory effort Auscultation: clear to auscultation bilaterally Cardio Rate: regular rate Rhythm: regular rhythm GI Other: + abd soft, nondistended, ttp of epigastric region. no rebound or guarding. Inspection: Yes normal to inspection, Yes Abdominal panniculus present and Yes obesity Palpation (GI): hepatosplenomegaly present General: Yes no CVA tenderness Back/Spine/Pelvis Back: no CVA tenderness Skin General skin exam: no rashes or lesions noted Neuro General: patient oriented x3 and gait normal Cranial nerves: Yes Equal, round and reactive pupils present Extrem General: Yes normal to inspection and Yes full ROM Course Course Course Narrative: 1219-- CBC without leukocytosis or anemia. Elevated total bili, direct bili, AST, ALT. She is also noted to have mild hepatomegaly on CT scan. Upon discussing this with the patient, she denies any known liver disease. She is 20 years s/p cholecystectomy. Although ultrasound may be limited due to patient's body habitus, will order ultrasound to look for possible stone vs chronic liver disease. CT also shows mesenteric adenitis likely reactive secondary to gastroenteritis. Urine is positive for infection > will discharge patient home with antibiotics. She has tested negative for covid and influenza. Stool returned negative for c.diff. Negative GI panel. > On re-evaluation, patient reports symptom improvement after receiving reglan. she is requesting to eat something however I advised patient to remain NPO until US is obtained. Will re-evaluate. 1431-- Patient reports symptom improvement on re-evaluation. She has not had any more episodes of vomiting or diarrhea in the ED today. She is tolerating crackers and gingerale in ED. Abdominal ultrasound essentially unremarkable. No evidence of hepatomegaly or liver disease. > discussed all workup results with patient. Patient's symptoms may be consistent with gastroenteritis with reactive mesenteric adenitis. I discussed findings of Leiomyomatous uterus, calcified fibroid and bilateral ovarian cysts. Patient states she has knowledge of uterine fibroids. I advised her to follow-up with her night clerk regarding these findings and she verbalizes understanding. Will send her home with rohini. Advised to take Imodium or Pepto-Bismol prn diarrhea. Her labs do not demonstrate any degree of dehydration and she received 1 L of IVF in the ED today. Additionally she is requesting a new inhaler be sent to her pharmacy for her asthma as she ran out of this. Will send rx. Patient has remained stable throughout ED visit today. Discussed worrisome signs and symptoms and when to return to the ED. All questions answered at this time. Patient is agreeable with disposition and stable for discharge. Medical Decision Making Medical Decision Making MDM Narrative: 52 year old female with pmhx significant for DM and asthma presents to the ED this morning from home for evaluation of diffuse abdominal pain, nausea/vomiting, and diarrhea x3 days. Patient initially tachycardic likely secondary to vomiting. Vitals now wnl. Patient is nontoxic appearing and in NAD. Abd soft, nondistended, ttp of epigastric region. no rebound or guarding. Clinical concern for viral syndrome, gastroenteritis, gastritis, urinary tract infection. Lower suspicion for IBS, ulcerative colitis, diverticulosis, diverticulitis, hepatitis, fatty liver disease. Unlikely cholecystitis as patient is status post cholecystectomy. Unlikely appendicitis, pancreatitis, gastroparesis, DKA. Plan for labs, UA, CT scan, and IVF. Differential Diagnosis Differential Diagnoses: The differential diagnosis associated with the presentation includes As above Admission/Observation Not indicated Lab Data MDM Lab Attestation statement: I reviewed the patient's lab results. As above 12/01/23 08:14 12/01/23 08:14 Labs: Lab Results 12/01/23 12/01/23 12/01/23 Range/Units 08:14 08:48 09:49 WBC 5.9 (4.8-10.8) X10*3/uL RBC 4.55 (4.20-5.50) X10*6/uL Hgb 13.7 (12.0-16.0) g/dl Hct 41.0 (37.0-47.0) % MCV 90.1 (80.0-98.0) fL MCH 30.1 (27.0-33.0) pg MCHC 33.4 (31.0-35.0) g/dl RDW 14.1 (11.0-16.0) % Plt Count 133 L (160-400) X10*3/uL MPV 9.8 (9.4-12.3) fL Immature Gran % (Auto) 0.3 (0.0-0.4) % Neut % (Auto) 74.1 H (45-73) % Lymph % (Auto) 17.3 L (20-40) % Wood[place] % (Auto) 7.3 (2-11) % Eos % (Auto) 0.7 (0-4) % Baso % (Auto) 0.3 (0-2) % Lymph # (Auto) 1.0 L (1.2-4.9) X10*3/uL [place]ruff # (Auto) 0.4 (0.1-1.2) X10*3/uL Eos # (Auto) 0.0 (0.0-0.4) X10*3/uL Baso # (Auto) 0.0 (0.0-0.2) X10*3/uL Abs Immat Gran (auto) 0.02 (0.00-0.03) X10*3/uL Absolute Neuts (auto) 4.4 (2.0-8.3) x10*3/uL Absolute Nucleated RBC 0.000 (0.0-0.012) X10*3/uL Nucleated RBC % (auto) 0.0 (0.0-0.2) /100WBC Sodium 137 (135-145) mmol/L Potassium 3.9 (3.3-5.1) mmol/L Chloride 106 (96-108) mmol/L Carbon Dioxide 22 (22-29) mmol/L Anion Gap 13 (12-20) BUN 9 (9-16) mg/dL Creatinine 0.76 (0.5-1.4) mg/dL Estim Creat Clear Calc 119.9 Estimated GFR > 60 Random Glucose 140 H (60-115) mg/dL Calcium 8.4 D (8.4-10.2) mg/dL Magnesium 1.6 (1.6-2.6) mg/dL Total Bilirubin 2.3 H (0.0-1.0) mg/dL Direct Bilirubin 0.7 H (0.0-0.5) mg/dL AST 52 H (5-31) U/L ALT 43 H (0-31) U/L Alkaline Phosphatase 116 (39-117) U/L Total Protein 8.1 H (6.5-8.0) g/dL Albumin 3.4 L (3.5-5.0) g/dL Lipase 10 (8-78) U/L Urine Color Dark Yellow Urine Appearance Cloudy Urine pH 6.0 (5.0-9.0) Ur Specific [place] >= 1.030 H (1.005-1.025) Urine Protein Trace (Neg-Trace) mg/dL Urine Glucose (UA) Negative (Negative) mg/dL Urine Ketones Trace (Negative) mg/dL Urine Blood Negative (Negative) Urine Nitrite Negative (Negative) Ur Leukocyte Esterase Trace H (Negative) Urine RBC 0-2 (0-2) /HPF Urine WBC 0-5 (0-5) /HPF Ur Squamous Epith Cells 11-20 (0-2) /HPF Urine Bacteria 1+ (None Seen) Hyaline Casts 0-2 (0-2) /LPF Stl C. cayetanensis PCR Not Detected (Not Detect.) Stool Rotavirus A PCR Not Detected (Not Detect.) Stl Adenov F 40/41 PCR Not Detected (Not Detect.) Stool Astrovirus (PCR) Not Detected (Not Detect.) Stool Campylobacter PCR Not Detected (Not Detect.) Stool Cryptosporidium PCR Not Detected (Not Detect.) Stl Sh Tox Pr E STEC PCR Not Detected (Not Detect.) Stool E coli O157 PCR Not applicable (Not Detect.) Stl Enterotoxigenic E PCR Not Detected (Not Detect.) Stool EPEC (PCR) Not Detected (Not Detect.) Stool EAEC (PCR) Not Detected (Not Detect.) Stl E. histolytica PCR Not Detected (Not Detect.) Stool Giardia Lamblia PCR Not Detected (Not Detect.) Stl P. shigelloides PCR Not Detected (Not Detect.) Stool Salmonella PCR Not Detected (Not Detect.) Stool Sapovirus (PCR) Not Detected (Not Detect.) Stl Shigella/EIEC PCR Not Detected (Not Detect.) St Y.enterocolitica PCR Not Detected (Not Detect.) Stool Vibrio (PCR) Not Detected (Not Detect.) Stl Vibrio cholerae PCR Not Detected (Not Detect.) Stl Norovirus GI/GII PCR See Comment (Not Detect.) C. difficile Tox B Gene NEGATIVE (Negative) COVID-19 (JEROMY) Negative (Negative) COVID-19 Clin Com See Note Influenza Type A (MOSHE) Negative (Negative) Influenza Type B (MOSHE) Negative (Negative) Influenza A & B Note See Note Independent Interpretation I performed an independent interpretation of an: Ultrasound and CT Scan Interpretation: I personally reviewed CT scan and agree with radiologist's interpretation. I have personally reviewed ultrasound and agree with radiologist's interpretation. Radiology Impression Discussion of test interpretation with radiology: I have reviewed the radiologist's reading. Radiologist Impression: CT abdomen pelvis wo IV con IMPRESSION: 1. Multiple subcentimeter mesenteric lymph nodes are noted with slight haziness in the mesentery suggesting elements of mesenteric adenitis versus panniculitis. Correlation with symptomatology. No enlarged lymph nodes per size criteria. 2. Mild hepatosplenomegaly. 3. Anteverted enlarged leiomyomatous uterus with partially calcified fibroid along the right posterior uterine fundus measuring 1.7 cm. 4. Bilateral adnexal/ovarian hypodense foci the largest on the right measuring 1.8 cm. Assuming postmenopausal status findings are overwhelmingly likely to represent a benign functional cyst and no follow-up imaging recommended. 5. Duplicated IVC. US abdomen limited IMPRESSION: No evidence of hepatomegaly on ultrasound. No significant evidence of fatty infiltration of the liver or hepatocellular disease. External Record Review External record reviewed: Inpatient record Prescription Management I considered prescription management with: Pain Medication and Other (aniemetic, antidiarrheal) Chronic Conditions Patient?s care impacted by: Diabetes Social Determinants Patient?s care significantly limited by Social Determinants of Health including: Other Social Determinant of Health Medications Administered Discontinued Medications Generic Name Dose Route Start Last Admin Trade Name Trevor PRN Reason Stop Dose Admin Diphenhydramine HCl 25 mg 12/01/23 10:36 12/01/23 11:13 Diphenhydramine Hcl 50 Mg/Ml Vial IVPUSH 12/01/23 10:37 Not Given ONCE ONE Sodium Chloride 1,000 mls @ 999 mls/hr 12/01/23 08:45 12/01/23 10:20 Ns IV 12/01/23 09:45 Infused .Q1H1M DYLAN Infusion Metoclopramide HCl 10 mg 12/01/23 10:36 12/01/23 10:51 Metoclopramide Hcl 10 Mg/2 Ml Vial IVPUSH 12/01/23 10:37 10 mg ONCE ONE Administration Ondansetron HCl 4 mg 12/01/23 08:32 12/01/23 08:58 Ondansetron Hcl 4 Mg/2 Ml Vial IVPUSH 12/01/23 08:33 4 mg ONCE ONE Administration Critical Care Time Critical Care Time Critical Care Time: No Discharge Plan Discharge Clinical Impression: Gastroenteritis, Urinary tract infection, Leiomyoma of uterus, Bilateral ovarian cysts Patient Disposition: Home, Self-Care Instructions: Ovarian Cyst (ED), Gastroenteritis (ED), Acute Diarrhea (ED) Additional Instructions: Your lab workup today was reassuring.? Your urine today was positive for infection. Nitrofurantoin is an antibiotic that has been sent to your pharmacy. Take this as prescribed and do not miss any doses. You must complete the entire course of antibiotics. If you do not, there is a risk of the infection coming back or worsening. Your symptoms are most consistent with a viral stomach bug, also known as gastroenteritis.? The treatment for this is supportive care. Symptoms usually resolve on their own in 48-72 hours.? The recommendation is rest and lots of oral hydration.? Stick to a bland diet like soup and toast while you are not feeling well.? Zofran is an anti-nausea medication. This has been sent to your pharmacy for you to take as needed for nausea.? You can also try over the counter Pepto Bismol or Imodium as needed for upset stomach and diarrhea.? Follow up with your primary care provider as needed. If you develop new or worsening symptoms call 911 or come back to the ER for further evaluation. You were noted to have incidental findings of uterine fibroids and ovarian cysts on CT scan. Please follow-up with your night clerk regarding these findings as discussed. If you do not have a night clerk, a referral has been provided to you. [facility] [place] [facility]: [phone] [place] an?lisis de laboratorio de james fue tranquilizador. [place] orina de hoy fue positiva para infecci?n. La nitrofuranto?na es un antibi?mark anthony que se arrington enviado a [place] farmacia. T?serrano seg?n lo prescrito y no omita ninguna dosis. Debe completar todo el ciclo de antibi?ticos. Si no lo hace, existe el riesgo de que la infecci?n regrese o empeore. Kym s?ntomas son m?s consistentes con un virus estomacal viral, tambi?n conocido france gastroenteritis. El tratamiento para esto es la atenci?n de apoyo. Los s?ntomas suelen desaparecer por s? solos en 48 a 72 horas. La recomendaci?n es reposo y neymar hidrataci?n bucal. Siga tulio dieta blanda france sopa y tostadas mientras no se sienta marilyn. Zofran es un medicamento contra las n?useas. [place] se envi? a [place] farmacia para que lo tome seg?n sea necesario para las n?useas. Tambi?n puede probar Pepto Bismol o Imodium sin receta seg?n sea necesario para el malestar estomacal y la diarrea. Dash un seguimiento con [place] proveedor de atenci?n primaria seg?n sea necesario. Si desarrolla s?ntomas nuevos o que empeoran, llame al 911 o regrese a la víctor de emergencias para tulio evaluaci?n adicional. Se observ? que ten?a hallazgos incidentales de fibromas uterinos y quistes ov?ricos en la tomograf?a computarizada. Dash un seguimiento con [place] ginec?logo sobre estos hallazgos france se discuti?. Si no tiene un ginec?logo, se le arrington proporcionado tulio derivaci?n. GINECOLOG?A [facility] [place]: [phone] Prescriptions: New ondansetron 4 mg tablet,disintegrating 4 mg PO DAILY PRN (Reason: nausea and vomiting) 5 Days Qty: 14 0RF nitrofurantoin macrocrystal 100 mg capsule 100 mg PO BID 5 Days Qty: 10 0RF Rx Instructions: must administer with a meal/food No Action risperidone 2 mg Tablet 2 mg PO DAILY lorazepam 1 mg Tablet 1 mg PO BID PRN (Reason: Anxiety) naproxen 500 mg Tablet 500 mg PO DAILY PRN (Reason: Pain) albuterol sulfate 2.5 mg /3 mL (0.083 %) Solution For Nebulization 2.5 mg INHALATION Q4H PRN (Reason: Respiratory Distress) fluticasone propion-salmeterol [Advair Diskus] 250-50 mcg/dose Blister With Device 1 inh INHALATION BID lisinopril 20 mg Tablet 20 mg PO DAILY metoprolol succinate 50 mg Tablet Extended Release 24 Hr 50 mg PO DAILY fluticasone propionate [Flonase] 50 mcg/actuation Maryneal,Suspension 2 spray INTRANASAL DAILY Rx Instructions: administer into each nostril fluticasone propionate [Flovent HFA] 110 mcg/actuation Hfa Aerosol Inhaler 2 puff INHALATION BID cetirizine 10 mg Tablet 10 mg PO DAILY PRN (Reason: ALLERGIES) metformin 500 mg Tablet Extended Release 24 Hr 500 mg PO DAILY albuterol sulfate [Proventil HFA] 90 mcg/actuation Hfa Aerosol Inhaler 2 puff INHALATION Q4H PRN (Reason: Respiratory Distress) prednisone 20 mg tablet 60 mg PO DAILY 5 Days Qty: 15 0RF Referrals: Desiree Quach RN [Emergency Nurse] - Devan Herr MD [Physician] - Stand Alone Forms: Work/School Release Interventions: ED Discharge Assessment Last Done: 12/01/23 14:56 Discharge Date/Time: 12/01/23 15:19 Print Language: Chinese
[2023-12-01 08:32] LABS: Anion Gap 13 (12-20); Blood Urea Nitrogen 9 mg/dL (9-16); Calcium 8.4 mg/dL (8.4-10.2); Carbon Dioxide 22 mmol/L (22-29); Chloride 106 mmol/L (96-108); Creatinine Clr Calc Pharmacy 119.9; Estimated Glomerular Filt Rate > 60; Glucose Random 140 mg/dL (60-115); Potassium 3.9 mmol/L (3.3-5.1); Sodium 137 mmol/L (135-145)
[2023-12-01 08:34] LABS: COVID-19 Test Negative (Negative); IDNOW Serial# 58CA691E
[2023-12-01 08:35] LABS: IDNOW Serial# 9DB6401D; Influenza A Negative (Negative); Influenza B2 Negative (Negative)
[2023-12-01 08:57] LABS: Alanine Aminotransferase 43 U/L (0-31); Albumin Level 3.4 g/dL (3.5-5.0); Alkaline Phosphatase 116 U/L (39-117); Aspartate Amino Transferase 52 U/L (5-31); Bilirubin Direct 0.7 mg/dL (0.0-0.5); Bilirubin Total 2.3 mg/dL (0.0-1.0); Lipase 10 U/L (8-78); Magnesium 1.6 mg/dL (1.6-2.6); Total Protein 8.1 g/dL (6.5-8.0)
[2023-12-01] MEDS: 0.9 % Sodium Chloride 1,000 ML 999 ML IV (08:58)
[2023-12-01] MEDS: ondansetron HCL 4 MG/2 ML VIAL IVPUSH (08:58)
[2023-12-01 09:02] LABS: Appearance Urine Cloudy; Color Urine Dark Yellow; Glucose Urine UA Negative (Negative); Leukocyte Esterase Urine Trace (Negative); Nitrite Urine Negative (Negative); Specific Gravity - Urine >= 1.030 (1.005-1.025); UMIC TRIGGER UACC YES; Urine Blood Negative (Negative); Urine Ketones Trace mg/dL (Negative); Urine Protein Trace mg/dL (Neg-Trace)
[2023-12-01 09:21] LABS: Bacteria Urine 1+ (None Seen); Hyaline Casts Urine 0-2 /LPF (0-2); RBC Urine 0-2 /HPF (0-2); WBC Urine 0-5 /HPF (0-5)
[2023-12-01 09:57] VITALS: TEMP 37.8
[2023-12-01 10:00] VITALS: BP 103/61; PULSE 103; RESP 16; TEMP 37.4
[2023-12-01 10:20] VITALS: O2SAT 95
[2023-12-01] MEDS: Metoclopramide HCl 10 MG/2 ML VIAL IVPUSH (10:51)
[2023-12-01 11:16] LABS: CDiff Gene PCR NEGATIVE (Negative)
[2023-12-01 11:29] LABS: Adenovirus F 40/41 Not Detected (Not Detect.); Astrovirus Not Detected (Not Detect.); Campylobacter Not Detected (Not Detect.); Cryptosporidium Not Detected (Not Detect.); Cyclospora cayetanensis Not Detected (Not Detect.); E. coli EAEC Not Detected (Not Detect.); E. coli EPEC Not Detected (Not Detect.); E. coli ETEC Not Detected (Not Detect.); E. coli STEC Not Detected (Not Detect.); Entamoeba histolytica Not Detected (Not Detect.); Giardia lamblia Not Detected (Not Detect.); Plesiomonas shigelloides Not Detected (Not Detect.); Rotavirus A Not Detected (Not Detect.); Salmonella Not Detected (Not Detect.); Sapovirus Not Detected (Not Detect.); Shigella sp./EIEC Not Detected (Not Detect.); Vibrio Not Detected (Not Detect.); Vibrio Cholerae Not Detected (Not Detect.); Yersinia enterocolitica Not Detected (Not Detect.)
--- NOTE | 2023-12-01 12:39 | PC.NURSE ---
Assumed care of this patient at 1100, patient resting quietly on stretcher at this time, requesting something to eat, patient informed to be kept NPO until after US obtained.
[2023-12-01 12:51] VITALS: BP 108/51; PULSE 96; RESP 16; O2SAT 95
--- NOTE | 2023-12-01 15:20 | PC.NURSE ---
L IV removed, reviewed D/C paperwork w/ patient, all questions answered, escorted patient to waiting room exit.
[2023-12-09 13:43] LABS: Norovirus Stool PCR DETECTED
== END 2023-12-01 15:19 | disposition home or self-care (01) ==
PROVIDERS: Physician Assistant Medical; Emergency Provider Emergency Medicine
DX: K52.9 Noninfective gastroenteritis and colitis, unspecified (principal); N39.0 Urinary tract infection, site not specified; D25.9 Leiomyoma of uterus, unspecified; N83.292 Other ovarian cyst, left side; N83.291 Other ovarian cyst, right side; R11.2 Nausea with vomiting, unspecified; R10.13 Epigastric pain; R00.0 Tachycardia, unspecified; Z11.52 Encounter for screening for COVID-19; E11.9 Type 2 diabetes mellitus without complications; Z90.49 Acquired absence of other specified parts of digestive tract; Z79.84 Long term (current) use of oral hypoglycemic drugs; Z79.899 Other long term (current) drug therapy
CPT/HCPCS: 36415; 74176; 76705; 80048; 80076; 81001; 81003; 83690; 83735; 85025; 87493; 87502; 87507; 87635; 96361; 96374; 96375; 99284; J1200; J2405; J2765

== ENCOUNTER 2024-03-12 17:21 | Emergency (ER) | payer OTHER, SELFPAY ==
--- NOTE | ~2024-03-12 | XR_ITS ---
EXAMINATION: XR CHEST CLINICAL INFORMATION: Coughing. Question pneumonia. COMPARISON: Chest x-ray 03/18/2023 TECHNIQUE: Frontal view of the chest was obtained. FINDINGS: No significant abnormality is noted involving the heart, lungs, mediastinum, bony thorax or soft tissues. XR/XR chest 1V IMPRESSION: Unremarkable chest examination.
[2024-03-12 17:41] VITALS: BP 143/96; PULSE 115; RESP 22; TEMP 37.4; O2SAT 97; BMI 51.5
--- NOTE | 2024-03-12 17:46 | ED_ITS ---
HPI - General Adult General Chief complaint: Upper Respiratory Symptoms Stated complaint: Asthma/bronchitis/sob Time Seen by Provider: 03/13/24 02:31 Source: patient Mode of arrival: ambulatory Limitations: no limitations History of Present Illness ED Provider: marsha CHISHOLM narrative: Patient with history of asthma been having fever cough congestion for last 1 week using her inhaler without much response Related Data Home Medications ?Medication ?Instructions ?Recorded ?Confirmed albuterol sulfate 2.5 mg/3 mL 2.5 mg inhalation Q4H PRN 03/18/23 03/18/23 (0.083 %) solution for nebulization Respiratory Distress albuterol sulfate 90 mcg/actuation 2 puff inhalation Q4H PRN 03/18/23 03/18/23 aerosol inhaler (Proventil HFA) Respiratory Distress cetirizine 10 mg tablet 10 mg PO DAILY PRN ALLERGIES 03/18/23 03/18/23 fluticasone 250 mcg-salmeterol 50 1 inh inhalation BID 03/18/23 03/18/23 mcg/dose blistr powdr for inhalation (Advair Diskus) fluticasone propionate 110 2 puff inhalation BID 03/18/23 03/18/23 mcg/actuation HFA aerosol inhaler (Flovent HFA) fluticasone propionate 50 2 spray intranasal DAILY 03/18/23 03/18/23 mcg/actuation nasal spray,suspension lisinopril 20 mg tablet 20 mg PO DAILY 03/18/23 03/18/23 lorazepam 1 mg tablet 1 mg PO BID PRN Anxiety 03/18/23 03/18/23 metformin 500 mg tablet,extended 500 mg PO DAILY 03/18/23 03/18/23 release 24 hr metoprolol succinate 50 mg 50 mg PO DAILY 03/18/23 03/18/23 tablet,extended release 24 hr naproxen 500 mg tablet 500 mg PO DAILY PRN Pain 03/18/23 03/18/23 risperidone 2 mg tablet 2 mg PO DAILY 03/18/23 03/18/23 Previous Rx's ?Medication ?Instructions ?Recorded prednisone 20 mg tablet 60 mg (3 x 20 mg) PO DAILY Asthma 03/18/23 5 days #15 tabs nitrofurantoin macrocrystal 100 mg 100 mg PO BID 5 days #10 caps 12/01/23 capsule ondansetron 4 mg disintegrating 4 mg PO DAILY PRN nausea and 12/01/23 tablet vomiting 5 days #14 tabs cefuroxime axetil 500 mg tablet 500 mg PO BID 7 days #14 tabs 03/13/24 prednisone 20 mg tablet 40 mg (2 x 20 mg) PO DAILY #10 tabs 03/13/24 Allergies Allergy/AdvReac Type Severity Reaction Status Date / Time morphine [MORPHINE] Allergy Intermediate RASH Verified 03/12/24 17:43 Penicillins Allergy Mild RASH Verified 03/12/24 17:43 From BENADRYL Allergy Mild CONFUSION Uncoded 03/12/24 17:43 Review of Systems Review of Systems: Yes all other systems are reviewed and are negative PMFSH Social History Social History Alcohol intake: never Advance Directives: No Advance Directives Information Provided: No Physical Exam ED Vital Signs: Vital Signs - 24 hr 03/12/24 17:41 03/12/24 23:50 03/13/24 01:20 Temperature 99.4 F 99 F 99.7 F Pulse Rate 115 H 125 H 123 H Respiratory Rate 22 H 24 H 16 Blood Pressure 143/96 H 149/95 H 124/76 Pulse Oximetry 97 92 95 Oxygen Delivery Method Room Air Room Air Room Air 03/13/24 02:50 Temperature 99.7 F Pulse Rate 123 H Respiratory Rate 16 Blood Pressure 124/76 Pulse Oximetry 95 Oxygen Delivery Method Room Air BMI result Body Mass Index 51.5 Appearance: Alert. Oriented X3. No acute distress. ENT: Pharynx normal. Oral Mucosa moist Neck: Normal inspection. Neck supple. CVS: Normal heart rate and rhythm. Pulses normal. Respiratory: No respiratory distress. Equal air entry bilateral, bilateral prolonged expiration Abdomen: Soft and nontender. Bowel sounds are present, no mass palpable, no CVA tenderness Skin: Skin warm and dry. Normal skin color. Normal skin turgor. Extremities: No lower extremity edema. No calf tenderness Neuro: Oriented X 3. No motor deficit. Course Course Course Narrative: RME: Done by GENET Arciniega. 53-year-old female presents to ED for coughing, fever, body aches, and chills. Patient states fever states 101 at home. Chest x-ray SARs strep ordered. Medications Administered Discontinued Medications Generic Name Dose Route Start Last Admin Trade Name Freq PRN Reason Stop Dose Admin Albuterol Sulfate 2 puff 03/13/24 02:40 03/13/24 02:50 Albuterol Sulfate 90 Mcg 8 Gm Inhaler INHALE 03/13/24 02:41 2 puff ONCE ONE Administration Benzonatate 200 mg 03/13/24 02:38 03/13/24 02:51 Benzonatate 100 Mg Capsule PO 03/13/24 02:39 200 mg ONCE ONE Administration Cefuroxime Axetil 500 mg 03/13/24 02:42 03/13/24 02:51 Cefuroxime Axetil 500 Mg Tablet PO 03/13/24 02:43 500 mg ONCE ONE Administration Dexamethasone 10 mg 03/13/24 02:33 03/13/24 02:50 Dexamethasone 2 Mg Tablet PO 03/13/24 02:34 10 mg ONCE ONE Administration Medical Decision Making Medical Decision Making [facility] Narrative: Patient's asthmatic bronchitis will discharge patient home on Tessalon and Ceftin and prednisone Differential Diagnosis Differential Diagnoses: The differential diagnosis associated with the presentation includes Lab Data [facility] Lab Attestation statement: I reviewed the patient's lab results. Labs: Lab Results 03/12/24 Range/Units 18:50 Influenza Type A (PCR) NEGATIVE (Negative) Influenza Type B (PCR) NEGATIVE (Negative) RSV RNA Qual (PCR) NEGATIVE (Negative) SARS-CoV-2 RNA (RT-PCR) NEGATIVE (Negative) S. pyogenes GrpA MOSHE Negative (Negative) Independent Interpretation I performed an independent interpretation of an: Plain X-Ray Interpretation: No infiltrate Radiology Impression Discussion of test interpretation with radiology: I have reviewed the radiologist's reading. Discharge Plan Discharge Clinical Impression: Acute asthmatic bronchitis Patient Disposition: Home, Self-Care Instructions: Acute Bronchitis (ED) Additional Instructions: Continue to use your nebulizing treatment Prednisone as prescribed Cough drops and antibiotic as prescribed Follow with PCP if not better Prescriptions: New prednisone 20 mg tablet 40 mg PO DAILY Qty: 10 0RF cefuroxime axetil 500 mg tablet 500 mg PO BID 7 Days Qty: 14 0RF No Action ondansetron 4 mg tablet,disintegrating 4 mg PO DAILY PRN (Reason: nausea and vomiting) 5 Days Qty: 14 0RF nitrofurantoin macrocrystal 100 mg capsule 100 mg PO BID 5 Days Qty: 10 0RF Rx Instructions: must administer with a meal/food risperidone 2 mg Tablet 2 mg PO DAILY lorazepam 1 mg Tablet 1 mg PO BID PRN (Reason: Anxiety) naproxen 500 mg Tablet 500 mg PO DAILY PRN (Reason: Pain) albuterol sulfate 2.5 mg /3 mL (0.083 %) Solution For Nebulization 2.5 mg INHALATION Q4H PRN (Reason: Respiratory Distress) fluticasone propion-salmeterol [Advair Diskus] 250-50 mcg/dose Blister With Device 1 inh INHALATION BID lisinopril 20 mg Tablet 20 mg PO DAILY metoprolol succinate 50 mg Tablet Extended Release 24 Hr 50 mg PO DAILY fluticasone propionate [Flonase] 50 mcg/actuation [place],Suspension 2 spray INTRANASAL DAILY Rx Instructions: administer into each nostril fluticasone propionate [Flovent HFA] 110 mcg/actuation Hfa Aerosol Inhaler 2 puff INHALATION BID cetirizine 10 mg Tablet 10 mg PO DAILY PRN (Reason: ALLERGIES) metformin 500 mg Tablet Extended Release 24 Hr 500 mg PO DAILY albuterol sulfate [Proventil HFA] 90 mcg/actuation Hfa Aerosol Inhaler 2 puff INHALATION Q4H PRN (Reason: Respiratory Distress) prednisone 20 mg tablet 60 mg PO DAILY 5 Days Qty: 15 0RF Interventions: ED Discharge Assessment Last Done: 03/13/24 02:50 Discharge Date/Time: 03/13/24 02:50 Print Language: Israeli
[2024-03-12 19:05] LABS: IDNOW Serial# 6674DD1D; Strep A Nucleic Acid Negative (Negative)
[2024-03-12 19:36] LABS: Influenza A PCR NEGATIVE (Negative); Influenza B PCR NEGATIVE (Negative); Resp Syncy Virus RNA Qual PCR NEGATIVE (Negative); SARS COV2 PCR INHOUSE NEGATIVE (Negative)
[2024-03-12 23:50] VITALS: BP 149/95; PULSE 125; RESP 24; TEMP 37.2; O2SAT 92
[2024-03-13 01:20] VITALS: BP 124/76; PULSE 123; RESP 16; TEMP 37.6; O2SAT 95
[2024-03-13 02:50] VITALS: BP 124/76; PULSE 123; RESP 16; TEMP 37.6; O2SAT 95
[2024-03-13] MEDS: dexAMETHasone 2 MG TABLET 10 MG PO (02:50)
[2024-03-13] MEDS: Albuterol Sulfate 90 MCG 8 GM INHALER 2 PUFF INHALE (02:50)
[2024-03-13] MEDS: Benzonatate 100 MG CAPSULE 200 MG PO (02:51)
[2024-03-13] MEDS: cefuroxime axetiL 500 MG TABLET PO (02:51)
== END 2024-03-13 02:50 | disposition home or self-care (01) ==
PROVIDERS: Physician Assistant; Emergency Provider Internal Medicine
DX: J45.909 Unspecified asthma, uncomplicated (principal); Z03.818 Encounter for observation for suspected exposure to other biological agents ruled out; Z79.899 Other long term (current) drug therapy
CPT/HCPCS: 0241U; 71045; 87651; 99284; J8540